=== PATIENT | male | born 1970 | race Caucasian/White ===

== ENCOUNTER 2022-09-13 11:34 | Emergency (ER) | payer OTHER ==
[~2022-09-13] VITALS: Ht 172.7 cm; Wt 91.0 kg
[2022-09-13] MEDS ORDERED: ONDANSETRON ODT 4 MG TAB PO ONE (12:00)
[2022-09-13] MEDS ORDERED: MORPHINE SULFATE 4 MG/ML SYR/VIAL IM ONE (12:00)
[2022-09-13 13:19] LABS: INR 0.97 (0.9-1.15); Partial Thromboplastin Time 25.1 sec (24.6-33.4)
[2022-09-13] MEDS ORDERED: KETOROLAC TROMETH 60MG/2ML VIAL IM ONE (17:30)
[2022-09-13] MEDS ORDERED: LORazepam 2MG/ML-1ML VIAL IM ONE (17:30)
[2022-09-13] MEDS ORDERED: KETAMINE 50mg/ML 10ml Vial (500mg/10ml) IV ONE (20:00)
[2022-09-13] MEDS ORDERED: LIDOCAINE 1% HCL (LOCAL ANESTH.) INJ 20ML MDV ID ONE (21:15)
[2022-09-13] MEDS ORDERED: MELO1TAB56 PO (22:27)
[2022-09-13] MEDS ORDERED: TRAM50TA2 PO ×2 (22:27→22:32)
[2022-09-13] MEDS ORDERED: MORPHINE SULFATE 4 MG/ML SYR/VIAL IV ONE (22:30)
[2022-09-13] MEDS ORDERED: ONDANSETRON HCL 4 MG/2 ML VIAL IV ONE (22:30)
[2022-09-13 23:43] VITALS: BP 105/96
== END 2022-09-13 23:51 | disposition home or self-care (01) ==
LOC: ER 11:34
DX: S52.502A Unspecified fracture of the lower end of left radius, initial encounter for closed fracture (principal); S52.612A Displaced fracture of left ulna styloid process, initial encounter for closed fracture; R51.9 Headache, unspecified; Z79.01 Long term (current) use of anticoagulants; V87.8XXA Person injured in other specified noncollision transport accidents involving motor vehicle (traffic), initial encounter; Y93.89 Activity, other specified; Y92.89 Other specified places as the place of occurrence of the external cause; Y99.8 Other external cause status
CPT/HCPCS: 25605; 36415; 70450; 71045; 72125; 73110; 85610; 85730; 96372; 96374; 96375; 99285; J1885; J2001; J2060; J2270; J2405; Q0162